=== PATIENT | female | born 1995 | race Caucasian/White ===

== ENCOUNTER 2016-06-05 13:37 | Emergency (ER) | payer MEDICAID, OTHER ==
[~2016-06-05] VITALS: Ht 154.9 cm; Wt 51.0 kg
[~2016-06-05 13:37] MED LIST: BACTDS PO; CEPH-443 PO; IBUP-1542 PO
[2016-06-05 13:42] VITALS: Ht 154.9 cm; Wt 51.0 kg
[2016-06-05] MEDS ORDERED: D-ME473S18 PO (14:04)
[2016-06-05] MEDS ORDERED: AZIT250T94 PO (14:04)
--- NOTE | 2016-06-05 14:09 | ERD ---
ER Documentation Chief Complaint Date/Time DATE: 06/05/16 TIME: 14:08 Chief Complaint cough/congestion x 3 days HPI This is a 21-year-old female presents to the ER with a productive cough for the last 3 days. Patient states that her cough is worsening and now she has agreed to yellow sputum. Patient denies any chest pain shortness of breath. She denies any fevers or chills. She also has a stuffy nose. Her boyfriend has similar symptoms. ROS 12 point review of systems was done, all negative except per HPI. Medications Home Meds Active Scripts Dextromethorphan Hb-Promethazine Hcl (Promethazine DM Syrup) 473 Ml Syrup, 10 ML PO Q6H Y for COUGH, #4 OZ Prov:MARA RANDLE 06/05/16 Azithromycin* (Zithromax*) 250 Mg Tablet, 250 MG PO .ZPACK DIRECTED, #6 TAB TAKE 500 MG (2 TABS) THE FIRST DAY THEN 250 MG (1 TAB) DAYS 2-5 Prov:MARA RANDLE 06/05/16 Cephalexin* (Keflex*) 500 Mg Capsule, 500 MG PO QID for 7 Days, CAP Prov:ESTEFANY TUBBS NP 02/02/16 Ibuprofen* (Motrin*) 600 Mg Tab, 600 MG PO Q6H Y for PAIN AND OR ELEVATED TEMP, #30 TAB Prov:ESTEFANY TUBBS NP 02/02/16 Ibuprofen* (Motrin*) 600 Mg Tab, 600 MG PO Q6H Y for PAIN AND OR ELEVATED TEMP, #30 TAB Prov:GEN BANSAL MD 01/12/16 Cephalexin* (Keflex*) 500 Mg Capsule, 500 MG PO QID for 7 Days, CAP Prov:GEN BANSAL MD 01/12/16 Sulfamethoxazole-Trimethoprim* (Bactrim* DS) 800-160 Mg Tab, 1 TAB PO BID for 7 Days, TAB Prov:GEN BANSAL MD 01/12/16 Allergies Allergies: Coded Allergies: No Known Allergy (Unverified , 12/07/15) PMhx/Soc History of Surgery: No Anesthesia Reaction: No Hx Neurological Disorder: No Hx Respiratory Disorders: No Hx Cardiac Disorders: No Hx Psychiatric Problems: No Hx Miscellaneous Medical Probl: No Hx Alcohol Use: No Hx Substance Use: No Hx Tobacco Use: No Physical Exam Vitals Vital Signs Date Time Temp Pulse Resp B/P Pulse Ox O2 Delivery O2 Flow Rate FiO2 06/05/16 13:42 98.0 105 18 125/78 98 Physical Exam GENERAL: The patient is well-developed, well-nourished, in no acute distress. NECK: Cervical spine is non tender with no step off. Supple, no nuchal rigidity HEENT: Atraumatic. Pupils equal, round and reactive to light. Extraocular muscles are grossly intact. Conjunctivae pink, no discharge. Bilateral tympanic membranes are clear with no evidence of erythema, effusion or dulling of the light reflex. Tonsilar erythema with no exudates or uvular deviation. Clear rhinorrhea. RESPIRATORY: Clear to auscultation bilaterally. There are no rales, wheezes or rhonchi. HEART: Regular rate and rhythm. No murmurs, clicks, rubs or gallops. EXTREMITIES: No clubbing or cyanosis. Full range of motion. Grossly neurovascularly intact. NEUROLOGIC: Alert and oriented. Cranial nerves II through XII are intact. SKIN: There is no rash. The skin is warm and dry. Procedures/MDM Differential diagnosis includes but is not limited to; Viral URI, allergic rhinitis, bronchitis, pertussis,pneumonia. Patient will be treated for possible bacterial bronchitis as her symptoms are worsening and she now has yellow to green sputum.. Clinical suspicion for pneumonia is low as patient appears well, is not hypoxic or in any respiratory distress. Additionally, patients physical examination is benign. Plan was discussed with patient they understand and agree. Patient needs to follow up with PCP in 1-2 days or return to ER sooner if symptoms worsen. Departure Diagnosis: Primary Impression: Bronchitis Condition: Stable Patient Instructions: What Is Bronchitis? Additional Instructions: Call your primary care doctor TOMORROW for an appointment during the next 1-2 days.See the doctor sooner or return here if your condition worsens before your appointment time. MARA RANDLE Jun 05, 2016 14:09
== END 2016-06-05 14:39 | disposition home or self-care (01) ==
LOC: FTE 13:37
DX: J20.9 Acute bronchitis, unspecified (principal)
CPT/HCPCS: 99284

== ENCOUNTER 2016-12-20 08:30 | Emergency (ER) | payer OTHER ==
[~2016-12-20] VITALS: Wt 52.5 kg
[~2016-12-20 08:30] MED LIST changes: +AZIT250T94 PO; +D-ME473S18 PO
[2016-12-20] MEDS ORDERED: AZIT250T94 PO (09:03)
[2016-12-20] MEDS ORDERED: POLY10DR19 BOTH EYES (09:03)
[2016-12-20] MEDS ORDERED: GUAI1TBM PO (09:03)
--- NOTE | 2016-12-20 09:09 | ERD ---
ER Documentation Chief Complaint Date/Time DATE: 12/20/16 TIME: 09:08 Chief Complaint cough, congestion, no sob HPI This 21-year-old female presents with active cough congestion sore throat and eye redness and discharge for the last week. The vomiting, diarrhea, urinary complaints, neck stiffness, rashes, shortness of breath. ROS All systems reviewed and are negative except as per history of present illness. Medications Home Meds Active Scripts Guaifenesin/Dextromethorphan (Mucinex Dm ER 1,200-60 mg Tab) 1 Each Tbmp.12hr, 1 EACH PO BID for 7 Days, #14 TAB Prov:WATSON ALDRICH MD 12/20/16 Polymyxin B Sulfate-TMP* (Polymyxin B-TMP Eye Drops*) 10 Ml Drops, 1 DROP BOTH EYES QID for 7 Days, EA Prov:WATSON ALDRICH MD 12/20/16 Azithromycin* (Zithromax*) 250 Mg Tablet, 250 MG PO .ZPACK DIRECTED, #6 TAB TAKE 500 MG (2 TABS) THE FIRST DAY THEN 250 MG (1 TAB) DAYS 2-5 Prov:WATSON ALDRICH MD 12/20/16 Dextromethorphan Hb-Promethazine Hcl (Promethazine DM Syrup) 473 Ml Syrup, 10 ML PO Q6H Y for COUGH, #4 OZ Prov:MARA RANDLE 06/05/16 Azithromycin* (Zithromax*) 250 Mg Tablet, 250 MG PO .ZPACK DIRECTED, #6 TAB TAKE 500 MG (2 TABS) THE FIRST DAY THEN 250 MG (1 TAB) DAYS 2-5 Prov:MARA RANDLE 06/05/16 Cephalexin* (Keflex*) 500 Mg Capsule, 500 MG PO QID for 7 Days, CAP Prov:ESTEFANY TUBBS NP 02/02/16 Ibuprofen* (Motrin*) 600 Mg Tab, 600 MG PO Q6H Y for PAIN AND OR ELEVATED TEMP, #30 TAB Prov:ESTEFANY TUBBS NP 02/02/16 Ibuprofen* (Motrin*) 600 Mg Tab, 600 MG PO Q6H Y for PAIN AND OR ELEVATED TEMP, #30 TAB Prov:GEN BANSAL MD 01/12/16 Cephalexin* (Keflex*) 500 Mg Capsule, 500 MG PO QID for 7 Days, CAP Prov:GEN BANSAL MD 01/12/16 Sulfamethoxazole-Trimethoprim* (Bactrim* DS) 800-160 Mg Tab, 1 TAB PO BID for 7 Days, TAB Prov:GEN BANSAL MD 01/12/16 Allergies Allergies: Coded Allergies: No Known Allergy (Unverified , 12/07/15) PMhx/Soc Medical and Surgical Hx: pt denies Medical Hx, pt denies Surgical Hx History of Surgery: No Anesthesia Reaction: No Hx Neurological Disorder: No Hx Respiratory Disorders: No Hx Cardiac Disorders: No Hx Psychiatric Problems: No Hx Miscellaneous Medical Probl: No Hx Alcohol Use: No Hx Substance Use: No Hx Tobacco Use: No Smoking Status: Never smoker Physical Exam Vitals Vital Signs Date Time Temp Pulse Resp B/P Pulse Ox O2 Delivery O2 Flow Rate FiO2 12/20/16 08:33 98.1 72 18 112/68 100 Physical Exam Const: [], [id number]. Head: Atraumatic Eyes: Normal Conjunctiva but discharge without redness of the sclera and eyes PERRLA and extraocular movements intact. ENT: Normal External Ears, Nose and Mouth. Is normal. Pupils nasal congestion. Neck: Full range of motion..~ No meningismus. Resp: Clear to auscultation bilaterally no rales, wheezing or retractions appreciated. Cardio: Regular rate and rhythm, no murmurs Abd: Soft, non tender, non distended. Normal bowel sounds Skin: No petechiae or rashes Back: No midline or flank tenderness Ext: No cyanosis, or edema Neur: Awake and alert Psych: Normal Mood and Affect Procedures/MDM Patient presents with productive cough for the last week with signs of conjunctivitis. No evidence of hypoxemia or respiratory distress. Given duration and possible sinusitis she will be treated with Zithromax, Mucinex and Polytrim, primary care follow-up and return precautions. The patient was stable with no new complaints during the ER course. Clinically, there is no current evidence to suggest meningitis, sepsis, acute abdomen, pneumonia, acute coronary syndrome, pulmonary embolism, or any other emergent condition appearing to require further evaluation or hospitalization. The patient should certainly return for any new or worsening symptoms per the aftercare instructions. They should otherwise follow-up with her primary care doctor for reevaluation this week. Departure Diagnosis: Primary Impression: Conjunctivitis Conjunctivitis type: unspecified Laterality: bilateral Qualified Code: H10.9 - Conjunctivitis of both eyes, unspecified conjunctivitis type Additional Impression: Upper respiratory infection URI type: unspecified URI Qualified Code: J06.9 - Upper respiratory tract infection, unspecified type Condition: Stable Patient Instructions: Acute Bronchitis, Conjunctivitis, Non-Specific Additional Instructions: Recheck for new or worsening symptoms or primary care doctor. WATSON ALDRICH MD Dec 20, 2016 09:09
== END 2016-12-20 09:29 | disposition home or self-care (01) ==
LOC: FTE 08:30
DX: H10.9 Unspecified conjunctivitis (principal); J06.9 Acute upper respiratory infection, unspecified
CPT/HCPCS: 99284